=== PATIENT | female | born 1995 | race African-American/Black ===

== ENCOUNTER 2018-02-20 08:40 | Outpatient (CLI) | payer OTHER ==
[2018-02-20 09:25] LABS: APPEARANCE,URINE CLOUDY; BILIRUBIN,URINE NEGATIVE (NEGATIVE); COLOR,URINE YELLOW; GLUCOSE, URINE NEGATIVE (NEGATIVE); KETONES,URINE NEGATIVE (NEGATIVE); LEUKOCYTE ESTERASE,URINE LARGE (NEGATIVE); NITRITE,URINE NEGATIVE (NEGATIVE); PROTEIN,URINE NEGATIVE (NEGATIVE); UROBILINOGEN,URINE NEGATIVE mg/dL (<2.0)
[2018-02-20 09:44] LABS: URINE AMPHETAMINES SCREEN NEGATIVE; URINE BARBITURATES SCREEN NEGATIVE; URINE COCAINE SCREEN NEGATIVE; URINE MARIJUANA (THC) SCREEN NEGATIVE; URINE METHADONE SCREEN NEGATIVE; URINE PHENCYCLIDINE SCREEN NEGATIVE
[2018-02-20 09:52] LABS: URINE BENZODIAZEPINES SCREEN NEGATIVE
--- NOTE | 2018-02-20 17:22 | Non Stress Test Report ---
Non Stress Test Datetime Report Generated by CPN: 02/20/2018 17:22 DEMOGRAPHIC EGA NST: 39.4 INDICATION Indication for Study: Other Indication for Study (NST) Other: lc VITAL SIGNS Temperature - NST: 98.4 RESP - NST: 14 MONITORING Monitor Explained: Monitor Explained; Test Explained; Patient Verbalized Understanding Time on Monitor: 02/20/2018 09:00 Time off Monitor: 02/20/2018 10:00 NST Duration: 60 NST INTERVENTIONS NST Interventions: PO Hydration; Reposition Patient Physician Notified NST: K Nixon CNM BABY A: [id number] BABY A Movement : Present Contraction Frequency : occassional FHR Baseline : 130 Accelerations : 15X15 Decelerations : None Variability : Moderate 6-25bpm NST Review: Meets Criteria for Reactive NST NST Review and Verified By : Martha Solis RN NST Results: Reactive NST REPORT Report Trigger: Send Report
== END 2018-02-20 10:35 | disposition home or self-care (01) ==
LOC: LC 08:40
PROVIDERS: ATTEND Obstetrics & Gynecology Gynecology
PROC: 4A1HXCZ Monitoring of Products of Conception, Cardiac Rate, External Approach (ICD-10-PCS; principal; 2018-02-20)
DX: O47.1 False labor at or after 37 completed weeks of gestation (principal); Z3A.39 39 weeks gestation of pregnancy
CPT/HCPCS: 59025; 80307; 81005

== ENCOUNTER 2018-02-21 02:37 | Outpatient (CLI) | payer OTHER ==
[2018-02-21 03:35] LABS: APPEARANCE,URINE SLIGHTLY-CLOUDY; BILIRUBIN,URINE NEGATIVE (NEGATIVE); COLOR,URINE YELLOW; GLUCOSE, URINE NEGATIVE (NEGATIVE); KETONES,URINE NEGATIVE (NEGATIVE); LEUKOCYTE ESTERASE,URINE LARGE (NEGATIVE); NITRITE,URINE NEGATIVE (NEGATIVE); PROTEIN,URINE NEGATIVE (NEGATIVE); URINE SPECIFIC GRAVITY 1.009; UROBILINOGEN,URINE NEGATIVE mg/dL (<2.0)
[2018-02-21 03:50] LABS: URINE AMPHETAMINES SCREEN NEGATIVE; URINE BARBITURATES SCREEN NEGATIVE; URINE BENZODIAZEPINES SCREEN NEGATIVE; URINE COCAINE SCREEN NEGATIVE; URINE MARIJUANA (THC) SCREEN NEGATIVE; URINE METHADONE SCREEN NEGATIVE; URINE PHENCYCLIDINE SCREEN NEGATIVE
[2018-02-21] MEDS ORDERED: HYDROXYZINE PAMOATE 50 MG CAPSULE PO ONE (04:48)
[2018-02-21] MEDS ORDERED: HYDROXYZINE PAMOATE 50 MG CAPSULE ONE (04:51)
== END 2018-02-21 05:01 | disposition home or self-care (01) ==
LOC: LC 02:37
PROVIDERS: ATTEND Obstetrics & Gynecology Gynecology
PROC: 4A1HXCZ Monitoring of Products of Conception, Cardiac Rate, External Approach (ICD-10-PCS; principal; 2018-02-21)
DX: O47.1 False labor at or after 37 completed weeks of gestation (principal); Z3A.39 39 weeks gestation of pregnancy
CPT/HCPCS: 80307; 81005

== ENCOUNTER 2018-02-21 14:08 | Inpatient (IN) | payer OTHER ==
[2018-02-21] MEDS ORDERED: RINGERS SOLUTION,LACTATED 1,000 ML IV PRN ×2 (14:35→17:55)
[2018-02-21] MEDS ORDERED: RINGERS SOLUTION,LACTATED 1,000 ML IV ONE (14:35)
[2018-02-21] MEDS ORDERED: PENICILLIN G POTASSIUM 5,000,000 UNIT in DEXTROSE 5%-WATER 100 ML IV ONE (14:35)
[2018-02-21] MEDS ORDERED: PENICILLIN G-K 5 MILLION UNIT VIAL ONE ×2 (14:36→19:14)
[2018-02-21] MEDS ORDERED: MISOPROSTOL 0.2 MG TABLET ONE (14:37)
[2018-02-21] MEDS ORDERED: LIDOCAINE 1% INJ-PF (10 MG/ML) 30 ML SDV ONE (14:37)
[2018-02-21] MEDS ORDERED: OXYTOCIN/NORMAL SALINE 20 UNIT/1,000 ML RTUINJ ONE (14:37)
[2018-02-21 14:49] LABS: APPEARANCE,URINE CLOUDY; BILIRUBIN,URINE NEGATIVE (NEGATIVE); COLOR,URINE YELLOW; GLUCOSE, URINE NEGATIVE (NEGATIVE); KETONES,URINE NEGATIVE (NEGATIVE); LEUKOCYTE ESTERASE,URINE LARGE (NEGATIVE); NITRITE,URINE NEGATIVE (NEGATIVE); PROTEIN,URINE NEGATIVE (NEGATIVE); URINE SPECIFIC GRAVITY 1.008; UROBILINOGEN,URINE NEGATIVE mg/dL (<2.0)
[2018-02-21] MEDS ORDERED: BUPIVACAINE HCL 0.25 % INJ/PF (2.5 MG/1 ML) 30 ML VIAL ONE (15:04)
[2018-02-21] MEDS ORDERED: EPHEDRINE SULFATE INJ 50 MG/1 ML AMPULE ONE (15:04)
[2018-02-21] MEDS ORDERED: FENTANYL/BUPIVACAINE/NS/PF 300 MCG/150 ML RTUINJ EPI ONE (15:04)
[2018-02-21 15:07] LABS: URINE AMPHETAMINES SCREEN NEGATIVE; URINE BARBITURATES SCREEN NEGATIVE; URINE BENZODIAZEPINES SCREEN NEGATIVE; URINE COCAINE SCREEN NEGATIVE; URINE MARIJUANA (THC) SCREEN NEGATIVE; URINE METHADONE SCREEN NEGATIVE; URINE PHENCYCLIDINE SCREEN NEGATIVE
[2018-02-21 15:21] LABS: ABSOLUTE LYMPHOCYTES (AUTO) 1.1 10^3/uL (0.5-4.7); ABSOLUTE MONOCYTES (AUTO) 0.6 10^3/uL (0.1-1.4); ABSOLUTE NEUT (AUTO) 6.1 10^3/uL (1.7-8.2); BASOPHILS % (AUTO) 0.2 % (0-2); EOSINOPHILS % (AUTO) 0.1 % (0-6); HEMOGLOBIN 10.8 g/dL (12.0-15.5); LYMPHOCYTES % (AUTO) 14.4 % (13-45); MEAN CORPUSCULAR HEMOGLOBIN 21.5 pg (27.0-33.4); MEAN CORPUSCULAR HGB CONC 32.7 g/dL (32.0-36.0); MEAN CORPUSCULAR VOLUME 66 fl (80-97); PLATELET COUNT 174 10^3/uL (150-450); RED BLOOD COUNT 5.02 10^6/uL (3.72-5.28); RED CELL DISTRIBUTION WIDTH 17.8 % (11.5-14.0); SEGMENTED NEUTROPHILS % (AUTO) 78.3 % (42-78); TOTAL CELLS COUNTED % (AUTO) 100 %; WHITE BLOOD COUNT 7.8 10^3/uL (4.0-10.5)
--- NOTE | 2018-02-21 15:35 | Admission Physical ---
Datetime Report Generated by CPN: 02/21/2018 15:34 CURRENT ADMISSION Chief Complaint: Uterine Contractions Indication for Induction: Not Applicable Admit Impression : Term, Intrauterine Admit Plan: Admit to Unit; Initiate Labor Protocol ALLERGIES Medication Allergies: No Medication Allergies: No Known Allergies (02/21/2018) Latex: No Latex Allergies Food Allergies: none Environmental Allergies: none OBSTETRICAL HISTORY EDC: 02/23/2018 00:00 : 1 Para: 0 Term: 0 : 0 SAB: 0 IAB: 0 Ectopic: 0 Livin Cesareans: 0 VBACs: 0 Multiple Births: 0 Gestational Diabetes: Yes Rh Sensitization: No Incompetent Cervix: No MARY: No Infertility: No ART Treatment: No Uterine Anomaly: No IUGR: No Hx Previous C/S: No Macrosomia: No Hx Loss/Stillborn: No PIH: No Hx : No Placenta Previa/Abruption: No Depression/PP Depression: No PTL/PROM: No Post Hemorrhage: No Current Procedures: Ultrasound; NST Obstetrical History Comments: G1 - current GDM diet controlled SEE RECORDS Alcohol: No Marijuana : No Cocaine: No Other Illicit Drugs: No Cigarettes: Former Smoker. [id number] MEDICAL HISTORY Diabetes: Yes Diabetes Type: Gestational Diabetes Blood Transfusion: No Pulmonary Disease (Asthma, TB): No Breast Disease: No Hypertension: No Financial Quantitative Analyst Surgery: No Heart Disease: No Hosp/Surgery: No Autoimmune Disorder: No Anesthetic Complications: No Kidney Disease: No Abnormal Pap Smear: No Neuro/Epilepsy: No Psychiatric Disorders: No Other Medical Diseases: No Hepatitis/Liver Disease: No Significant Family History: No Varicosities/Phlebitis: No Trauma/Violence : No Thyroid Dysfunction: No Medical History Comments: pilonidal cyst, sickle cell trait INFECTIOUS HISTORY Gonorrhea: No Genital Herpes: No Chlamydia: No Tuberculosis: No Syphilis: No Hepatitis: No HIV/AIDS Exposure: No Rash or Viral Illness: No HPV: No PHYSICAL EXAM General: Normal HEENT: Normal Neurologic: Normal Thyroid: Deferred Heart: Normal Lungs: Normal Breast: Deferred Back: Normal Abdomen: Normal Genitourinary Exam: Normal Extremities: Normal DTRs: Deferred Pelvic Type: Adequate Vital Signs: Reviewed; Within Normal Limits VAGINAL EXAM Dilatation: 6 Effacement: 90 Station: bbow Contraction Comments: q5mins MEMBRANES Membranes: Bulging FETUS A EGA: 39.5 Monitoring: External US FHR- Baseline: 135 Variability: Moderate 6-25bpm Accelerations: 15X15 FHR Category: Category I Admit Comment: at 39+5w by 7w sono. complicated by GDM A1, pilonidal cyst surgery during . admitted for active labor, GBS pos-PCN orderedanticipate PLANS FOR LABOR AND DELIVERY Labor and Delivery: None Pain Management: Epidural Feeding Preference: Breast Benefit of Breast Feed Discussed: Yes Circumcision: Yes INFORMED CONSENT Assignment: Radha Banda MD Signature: with User ID: [email or web address] : with User ID: [email or web address]
[2018-02-21] MEDS ORDERED: OXYTOCIN/NORMAL SALINE 20 UNIT/1,000 ML RTUINJ IV PRN ×2 (17:55→21:40)
[2018-02-21] MEDS: PENICILLIN G POTASSIUM 2,500,000 UNIT in DEXTROSE 5%-WATER 50 ML IV SCH (19:31)
[2018-02-21] MEDS ORDERED: CEFAZOLIN 2 GM/D5W RTU 2 GM/50 ML RTUPB IV ONE (21:30)
[2018-02-21] MEDS ORDERED: DIPHENHYDRAMINE HCL 25 MG CAPSULE PO PRN (21:40)
[2018-02-21] MEDS ORDERED: PSEUDOEPHEDRINE HCL 30 MG TABLET PO PRN (21:40)
[2018-02-21] MEDS ORDERED: MEASLES,MUMPS&RUBELLA VACC/PF 0.5 ML VIAL SUBCUT PRN (21:40)
[2018-02-21] MEDS ORDERED: ZOLPIDEM TARTRATE 5 MG TABLET PO PRN (21:40)
[2018-02-21] MEDS ORDERED: PROMETHAZINE HCL 25 MG SUPP.RECT PR PRN (21:40)
[2018-02-21] MEDS ORDERED: PROMETHAZINE HCL INJ 25 MG/1 ML VIAL IV PRN (21:40)
[2018-02-21] MEDS ORDERED: ACETAMINOPHEN 325 MG TABLET PO PRN (21:40)
[2018-02-21] MEDS ORDERED: DIBUCAINE 1% OINTMENT 28 GM TP PRN (21:40)
[2018-02-21] MEDS ORDERED: BENZOCAINE/MENTHOL AEROSOL SPRAY 56 ML TOP PRN (21:40)
[2018-02-21] MEDS ORDERED: PROMETHAZINE HCL 25 MG TABLET PO PRN (21:40)
[2018-02-21] MEDS ORDERED: MAGNESIUM HYDROXIDE SUSP 30 ML UDCUP PO PRN (21:40)
[2018-02-21] MEDS ORDERED: ACETAMINOPHEN WITH CODEINE #3 TABLET PO PRN ×2 (21:40)
[2018-02-21] MEDS ORDERED: GLYCERIN/WITCH HAZEL LEAF 1 EACH MED..PAD TP PRN (21:40)
[2018-02-21] MEDS ORDERED: NA PHOS,M-B/NA PHOS,DI-BA (ADULT) 133 ML ENEMA PR PRN (21:40)
[2018-02-21] MEDS ORDERED: DIPH/PERTUSS(ACELL)/TETANUS VAC/PF 0.5 ML SYR (>=10YO) IM PRN (21:40)
[2018-02-21] MEDS ORDERED: MISOPROSTOL 0.2 MG TABLET PR PRN (21:40)
--- NOTE | 2018-02-21 21:53 | Warning Signs in Babies ---
VOD Warning Signs Datetime Report Generated by [facility]: 02/21/2018 21:53 VOD#608 -Warning Signs in Babies: Needs to be viewed. (02/20/2018 08:51:Tika Connor RN)
[2018-02-22] MEDS ORDERED: CEFAZOLIN 2 GM/D5W RTU 2 GM/50 ML RTUPB IV SCH
--- NOTE | 2018-02-22 00:12 | Warning Signs in Babies ---
VOD Warning Signs Datetime Report Generated by [facility]: 02/22/2018 00:11 VOD#608 -Warning Signs in Babies: Viewed with Parent(s)/Family (02/20/2018 08:51:Tika Connor RN)
--- NOTE | 2018-02-22 00:13 | Delivery Summary ---
Del Sum A-C Datetime Report Generated by CPN: 02/22/2018 00:12 DELIVERY PERSONNEL DELIVERY PERSONNEL: [id number] Delivery Doctor:: Radha Banda MD Labor and Delivery Nurse:: Antonieta Bonilla RNcontact assembler Nurse:: Tika Connor RN Nursery Nurse:: Ilsa Adhikari RN It Business Process Architect/ACTIVITY THERAPY TEACHER: Bria Parada CNA MATERNAL INFORMATION Delivery Anesthesia: Epidural Medications After Delivery: Pitocin Drip 20 Units/1000ml NSS; Other-Please Comment Meds After Delivery Comment: cytotec 1000mcg pr Maternal Complications: Other Other Maternal Complications: gdma1 Provider Comments: VMI delivered in DAVID presentation. No nuchal cord. Shoulders and body delivered without difficulty. Cord doubly clamped and cut and to maternal abd. Placenta delivered with manual extraction due to lower uterine segment contracted onto placenta and placenta was still attached at fundus. Antonio to gravity placed. and bladder drained. Manual extraction performed and placenta intact but sent to patholgy. Cytotec placed Per rectum. Ancef given IV. 2nd degree perineal laceration repaired in usual fashion. Mother and baby stable upon provider leaving the room. LABOR SUMMARY EDC: 02/23/2018 00:00 No. Babies in Womb: 1 Attempted: No Labor Anesthesia: Epidural LABOR INFORMATION Reason for Induction: Not Applicable Onset of Labor: 02/21/2018 14:33 Complete Dilatation: 02/21/2018 20:52 Cervical Ripening Agents: Cytotec @ 1000 Oxytocin: Augmentation Group B Beta Strep: Positive Antibiotics # of Doses: 2 Antibiotics Time of Last Dose: 1906 Name of Antibiotic Given: PCN Steroids Given: None Reason Steroids Not Administered: Not Applicable MEMBRANES Membranes Rupture Method: Spontaneous Rupture of Membranes: 02/21/2018 16:46 Length of Rupture (hr): 4.50 Amniotic Fluid Color: Moderate Meconium Amniotic Fluid Amount: Small Amniotic Fluid Odor: Normal STAGES OF LABOR Stage 1 hr: 6 Stage 1 min: 19 Stage 2 hr: 0 Stage 2 min: 24 Stage 3 hr: 0 Stage 3 min: 8 Total Time in Labor hr: 6 Total Time in Labor min: 51 VAGINAL DELIVERY Episiotomy: None Laceration #1: Perineal Laceration Extension #1: Second Degree Laceration Repair: Yes Laceration Repair Note: 2nd degree perineal laceration repaired in usual fashion Sponge Count Correct: Yes Sharps Count Correct: Yes CSECTION DELIVERY Primary Indication: N/A Secondary Indication: N/A CSection Incision: N/A BABY A INFORMATION Infant Delivery Date/Time: 02/21/2018 21:16 Method of Delivery: Vaginal Born in Route : No : N/A Forceps: N/A Vacuum Extraction: N/A Shoulder Dystocia : No PRESENTATION/POSITION BABY A Presentation: Cephalic Cephalic Presentation: Vertex Vertex Position: Left Occipital Anterior Breech Presentation: N/A PLACENTA INFORMATION BABY A Placenta Delivery Time : 02/21/2018 21:24 Placenta Method of Delivery: Manual Removal Placenta Status: Delivered SCORES BABY A Heart Rate 1 min: >100 bpm Resp Effort 1 min: Good Cry Reflex Irritability 1 min: Cough or Sneeze or Pulls Away Muscle Tone 1 min: Active Motion Color 1 min: Body Fedora, Extremities Blue Resuscitation Effort 1 min: Tactile Stimulation SCORE 1 MIN: 9 Heart Rate 5 min: >100 bpm Resp Effort 5 min: Good Cry Reflex Irritability 5 min: Cough or Sneeze or Pulls Away Muscle Tone 5 min: Active Motion Color 5 min: Body Fedora, Extremities Blue Resuscitation Effort 5 min: Tactile Stimulation SCORE 5 MIN: 9 INFORMATION BABY A Gestational Age at Delivery: 39.5 Gestational Status: Full Term- 39- 40.6 Weeks Outcome : Liveborn Infant Condition : Stable Sex: Male IDENTIFICATION BABY A Verification Date/Time: 02/21/2018 21:26 ID Band Number: [id number] Infant RN Verifying Infant: K. Hermilo, RN Additional Verifying Personnel: Aarti Theodore WEIGHT/LENGTH BABY A Birthweight (gm): 3560 Infant Weight (lb): 7 Infant Weight (oz): 14 Length (in): 20.50 Infant Length (cm): 52.07 CORD INFORMATION BABY A No. Cord Vessels: 3 Nuchal Cord : N/A Cord Blood Taken: Yes-For Eval (Mom's Blood Type - or O+) Infant Suction: Mouth ASSESSMENT BABY A Infant Complications: Meconium Physical Findings at Delivery: Caput Succedaneum Infant Respirations: Appears Normal Skin to Skin: Yes Industrial Equipment Mechanic/ALS Called : No Care By: rn derrick Transferred To: Remains with Mother BABY B INFORMATION : N/A SIGNATURES Signature: with User ID: [email or web address] : I was personally available for consultation and serving as supervising physician for the MLP.
--- NOTE | 2018-02-22 00:23 | Warning Signs in Babies ---
VOD Warning Signs Datetime Report Generated by [facility]: 02/22/2018 00:23 VOD#608 -Warning Signs in Babies: Viewed with Parent(s)/Family (02/22/2018 00:22:Tika Connor RN)
[2018-02-22] MEDS: PENICILLIN G POTASSIUM 2,500,000 UNIT in DEXTROSE 5%-WATER 50 ML IV SCH ×2 (01:27→05:32)
[2018-02-22] MEDS: FAMOTIDINE 20 MG TABLET PO SCH ×3 (01:28→23:10)
[2018-02-22] MEDS ORDERED: IBUPROFEN 800 MG TABLET ONE (01:30)
[2018-02-22] MEDS: IBUPROFEN 800 MG TABLET PO SCH ×4 (01:43→23:00)
[2018-02-22 06:55] LABS: HEMATOCRIT 30.2 % (36.0-47.0); HEMOGLOBIN 9.9 g/dL (12.0-15.5); MEAN CORPUSCULAR HEMOGLOBIN 21.6 pg (27.0-33.4); MEAN CORPUSCULAR HGB CONC 32.9 g/dL (32.0-36.0); MEAN CORPUSCULAR VOLUME 66 fl (80-97); PLATELET COUNT 156 10^3/uL (150-450); RED CELL DISTRIBUTION WIDTH 17.9 % (11.5-14.0); WHITE BLOOD COUNT 8.4 10^3/uL (4.0-10.5)
[2018-02-22] MEDS: PRENATAL VITAMIN W DHA CAPSULE PO SCH (09:17)
[2018-02-22] MEDS: SENNOSIDES/DOCUSATE 8.6-50 MG 1 EACH TABLET PO SCH (09:17)
[2018-02-22] MEDS: DOCUSATE SODIUM 100 MG CAPSULE PO SCH ×2 (09:17→17:09)
[2018-02-22] MEDS: FERROUS SULFATE 325 MG TABLET PO SCH ×2 (09:17→17:09)
--- NOTE | 2018-02-22 10:13 | PDOC PROGRESS REPORT ---
Subjective-OB Progress Note for:: 02/22/18 Subjective: reports bleeding slowing but was heavy overnight. nurse present and states she is about to take hyde catheter out, pain controlled with current meds, denies needs Physical Exam (OB) Vital Signs: Temp Pulse Resp BP Pulse Ox 98.4 F 86 18 125/82 100 02/22/18 06:29 02/22/18 06:29 02/22/18 06:29 02/22/18 06:29 02/22/18 06:29 Intake & Output 02/21/18 02/22/18 02/23/18 06:59 06:59 06:59 Intake Total 1100 Balance 1100 Weight 104.6 kg - Lochia Lochia Amount: Small 10-25 ml - small gush with fundal rub Lochia Color: Rubra/Red - Abdomen Description: Soft, Round Hernia Present: No Fundal Description: Firm, Midline Fundal Height: u/u - u/2 - Abdominal Inspection: Normal Distension: No distension Tenderness: Nontender - Extremities Lower extremities: Vini's sign - neg Calf: Normal, Nontender Objective-Diagnostic Laboratory: 02/22/18 06:43 02/21/18 02/21/18 02/21/18 14:20 14:59 15:05 WBC 7.8 RBC 5.02 Hgb 10.8 L Hct 33.0 L MCV 66 L MCH 21.5 L MCHC 32.7 RDW 17.8 H Plt Count 174 Seg Neutrophils % 78.3 H Lymphocytes % 14.4 Monocytes % 7.0 Eosinophils % 0.1 Basophils % 0.2 Absolute Neutrophils 6.1 Absolute Lymphocytes 1.1 Absolute Monocytes 0.6 Absolute Eosinophils 0.0 Absolute Basophils 0.0 Urine Color YELLOW Urine Appearance CLOUDY Urine pH 7.0 Ur Specific [place] 1.008 Urine Protein NEGATIVE Urine Glucose (UA) NEGATIVE Urine Ketones NEGATIVE Urine Blood NEGATIVE Urine Nitrite NEGATIVE Ur Leukocyte Esterase LARGE H Urine WBC (Auto) 32 Urine RBC (Auto) 3 Blood Type O POSITIVE Antibody Screen NEGATIVE 02/22/18 06:43 WBC 8.4 RBC 4.60 Hgb 9.9 L Hct 30.2 L MCV 66 L MCH 21.6 L MCHC 32.9 RDW 17.9 H Plt Count 156 Seg Neutrophils % Lymphocytes % Monocytes % Eosinophils % Basophils % Absolute Neutrophils Absolute Lymphocytes Absolute Monocytes Absolute Eosinophils Absolute Basophils Urine Color Urine Appearance Urine pH Ur Specific [place] Urine Protein Urine Glucose (UA) Urine Ketones Urine Blood Urine Nitrite Ur Leukocyte Esterase Urine WBC (Auto) Urine RBC (Auto) Blood Type Antibody Screen Assessment and Plan(PN) - Assessment and Plan (1) Carrier of group B Streptococcus Is this a current diagnosis for this admission?: Yes (2) Obstetrical laceration, second degree Is this a current diagnosis for this admission?: Yes (3) Vaginal delivery Is this a current diagnosis for this admission?: Yes - Time Spent with Patient Time with patient: Less than 15 minutes - Disposition Anticipated Discharge: Home Within: within 24 hours
[2018-02-23 06:02] LABS: ABSOLUTE MONOCYTES (AUTO) 0.7 10^3/uL (0.1-1.4); ABSOLUTE NEUT (AUTO) 4.2 10^3/uL (1.7-8.2); BASOPHILS % (AUTO) 0.5 % (0-2); EOSINOPHILS % (AUTO) 0.4 % (0-6); HEMATOCRIT 31.4 % (36.0-47.0); HEMOGLOBIN 10.3 g/dL (12.0-15.5); MEAN CORPUSCULAR HEMOGLOBIN 21.9 pg (27.0-33.4); MEAN CORPUSCULAR HGB CONC 32.8 g/dL (32.0-36.0); MEAN CORPUSCULAR VOLUME 67 fl (80-97); MONOCYTES % (AUTO) 10.1 % (3-13); PLATELET COUNT 170 10^3/uL (150-450); RED BLOOD COUNT 4.71 10^6/uL (3.72-5.28); RED CELL DISTRIBUTION WIDTH 17.8 % (11.5-14.0); TOTAL CELLS COUNTED % (AUTO) 100 %; WHITE BLOOD COUNT 7.1 10^3/uL (4.0-10.5)
[2018-02-23] MEDS: IBUPROFEN 800 MG TABLET PO SCH (06:12)
[2018-02-23 09:18] VITALS: BP 125/82
--- NOTE | 2018-02-23 09:18 | PDOC DISCHARGE SUMMARY ---
Final Diagnosis Discharge Date: 02/23/18 - Final Diagnosis (1) Carrier of group B Streptococcus Is this a current diagnosis for this admission?: Yes (2) Obstetrical laceration, second degree Is this a current diagnosis for this admission?: Yes (3) Vaginal delivery Is this a current diagnosis for this admission?: Yes Discharge Data - Discharge Medication Prescriptions: Ibuprofen [Motrin 800 mg Tablet] 800 mg PO Q8 #60 tablet Home Medications: Vit,Calc76/Iron/Folic [Prenatabs Rx Tablet] 1 each PO DAILY 02/20/18 Ibuprofen [Motrin 800 mg Tablet] 800 mg PO Q8 #60 tablet 02/23/18 Procedures: NST Intrapartum Procedure(s): Spontaneous Vaginal Delivery Complication(s): Laceration-Vaginal Laceration-Degree: 2nd - Diagnosis Test Laboratory: Temp Pulse Resp BP Pulse Ox 98.1 F 102 H 18 125/81 99 02/23/18 07:37 02/23/18 07:37 02/23/18 07:37 02/23/18 07:37 02/23/18 07:37 02/21/18 02/21/18 02/22/18 14:20 15:05 06:43 RBC 5.02 4.60 Hgb 10.8 L 9.9 L Hct 33.0 L 30.2 L Urine Opiates Screen NEGATIVE 02/23/18 05:42 RBC 4.71 Hgb 10.3 L Hct 31.4 L Urine Opiates Screen - Discharge information/Instructions Discharge Activity: Balance Activity w/Rest, Pelvic Rest Discharge Diet: Regular Disposition: HOME, SELF-CARE Follow up with: [facility] in: 4, Weeks
[2018-02-23] MEDS: PRENATAL VITAMIN W DHA CAPSULE PO SCH (10:20)
[2018-02-23] MEDS: SENNOSIDES/DOCUSATE 8.6-50 MG 1 EACH TABLET PO SCH (10:20)
[2018-02-23] MEDS: FAMOTIDINE 20 MG TABLET PO SCH (10:20)
[2018-02-23] MEDS: FERROUS SULFATE 325 MG TABLET PO SCH (10:20)
[2018-02-23] MEDS: DOCUSATE SODIUM 100 MG CAPSULE PO SCH (10:20)
== END 2018-02-23 14:23 | disposition home or self-care (01) | DRG 775 ==
LOC: LC 14:08 → LR 14:48 → 2S 02-22 06:14
PROVIDERS: ADMIT Student in an Organized Health Care Education/Training Program; ATTEND Student in an Organized Health Care Education/Training Program
PROC: 10E0XZZ Delivery of Products of Conception, External Approach (ICD-10-PCS; principal; 2018-02-21)
PROC: 0KQM0ZZ Repair Perineum Muscle, Open Approach (ICD-10-PCS; 2018-02-21)
PROC: 4A1HXCZ Monitoring of Products of Conception, Cardiac Rate, External Approach (ICD-10-PCS; 2018-02-21)
DX: O99.824 Streptococcus B carrier state complicating childbirth (principal); O70.1 Second degree perineal laceration during delivery; O24.420 Gestational diabetes mellitus in childbirth, diet controlled; O99.02 Anemia complicating childbirth; D57.3 Sickle-cell trait; O77.0 Labor and delivery complicated by meconium in amniotic fluid; Z87.891 Personal history of nicotine dependence; Z3A.39 39 weeks gestation of pregnancy; Z37.0 Single live birth
CPT/HCPCS: 36415; 80307; 81001; 85025; 85027; 86592; 86850; 86900; 86901; 88307; 94760; J0690; J2540; J2590; J3010; J3490

== ENCOUNTER 2018-10-22 18:19 | Emergency (ER) | payer OTHER ==
[2018-10-22 18:30] VITALS: BP 137/85
[2018-10-22] MEDS ORDERED: IBUPROFEN 800 MG TABLET PO ONE (19:18)
[2018-10-22] MEDS ORDERED: GUAIFENESIN 600 MG TABLET.SA PO ONE (19:18)
[2018-10-22] MEDS ORDERED: PSEUDOEPHEDRINE HCL 30 MG TABLET PO ONE (19:18)
[2018-10-22] MEDS ORDERED: LORATADINE 10 MG TABLET PO ONE (19:18)
--- NOTE | 2018-10-22 19:22 | ER Document Report ---
ED ENT - General Chief Complaint: Chest Congestion Stated Complaint: CHEST CONGESTION Time Seen by Provider: 10/22/18 19:10 Primary Care Provider: SHUKRI GHOSH MD [ACTIVE STAFF] - Follow up as needed Mode of Arrival: Ambulatory Information source: Patient Notes: 23-year-old female presents to ED for complaint of cough cold congestion stuffy nose times 3 days. She states there is no fever. States she smokes 1 black a mild every day. Patient is alert oriented respirations regular and unlabored speaking in full sentences walks with a even steady gait. TRAVEL OUTSIDE OF THE [place] IN LAST 30 DAYS: No - HPI Patient complains to provider of: Nose problem, Other - Cough cold congestion Onset: Other - 3 days Onset/Duration: Gradual Quality of pain: Achy Severity: Moderate Pain Level: 3 Context: Recent Illness Location of pain: Nose, Sinus, Throat Associated symptoms: Congestion, Cough, Runny nose, Sinus pain, Sinus drainage, Other - Body aches. denies: Fever Similar symptoms previously: Yes Recently seen / treated by doctor: No - Related Data Allergies/Adverse Reactions: No Known Allergies Allergy (Verified 10/22/18 18:20) Past Medical History - General Information source: Patient - Social History Smoking Status: Current Every Day Smoker Cigarette use (# per day): Yes - 1 black and mild cigar a day Chew tobacco use (# tins/day): No Smoking Education Provided: Yes - 4 minutes Frequency of alcohol use: Occasional Drug Abuse: None Occupation: Housewife Lives with: Family Family History: Reviewed & Not Pertinent Patient has suicidal ideation: No Patient has homicidal ideation: No - Past Medical History Cardiac Medical History: Reports: None Pulmonary Medical History: Reports: None EENT Medical History: Reports: None Neurological Medical History: Reports: None Endocrine Medical History: Reports: None Renal/ Medical History: Reports: None Malignancy Medical History: Reports: None GI Medical History: Reports: None Musculoskeletal Medical History: Reports None Skin Medical History: Reports None Psychiatric Medical History: Reports: None Traumatic Medical History: Reports: None Infectious Medical History: Reports: None Surgical Hx: Negative Past Surgical History: Reports: None - Immunizations Immunizations up to date: Yes Review of Systems - Review of Systems Constitutional: Recent illness. denies: Fever EENT: Nose congestion, Nose discharge, Sinus pressure, Sinus discharge, Other - Body aches Cardiovascular: No symptoms reported Respiratory: Cough Gastrointestinal: No symptoms reported Genitourinary: No symptoms reported Female Genitourinary: No symptoms reported Musculoskeletal: Muscle pain Skin: No symptoms reported Hematologic/Lymphatic: No symptoms reported Neurological/Psychological: No symptoms reported -: Yes All other systems reviewed and negative Physical Exam - Vital signs Vitals: Temp Pulse Resp BP Pulse Ox 98.9 F 92 18 137/85 H 98 10/22/18 18:28 10/22/18 18:28 10/22/18 18:28 10/22/18 18:28 10/22/18 18:28 Interpretation: Normal - General General appearance: Appears well, Alert - HEENT Head: Normocephalic, Atraumatic Eyes: Normal Pupils: PERRL Ears: Normal External canal: Normal Tympanic membrane: Normal Sinus: Normal Nasal: Purulent discharge, Swelling Mouth/Lips: Normal Mucous membranes: Normal Pharynx: Post nasal drainage. No: Erythema, Exudate, Tonsillar hypertrophy Neck: Normal - Respiratory Respiratory status: No respiratory distress Chest status: Nontender Breath sounds: Nonproductive cough. No: Decreased air movement, Productive cough, Rales, Rhonchi, Stridor, Wheezing Chest palpation: Normal - Cardiovascular Rhythm: Regular Heart sounds: Normal auscultation Murmur: No - Abdominal Inspection: Normal Distension: No distension Bowel sounds: Normal Tenderness: Nontender Organomegaly: No organomegaly - Back Back: Normal, Nontender - Extremities General upper extremity: Normal inspection, Nontender, Normal color, Normal ROM, Normal temperature General lower extremity: Normal inspection, Nontender, Normal color, Normal ROM, Normal temperature, Normal weight bearing. No: Vini's sign - Neurological Neuro grossly intact: Yes Cognition: Normal Orientation: AAOx4 [place] Coma Scale Eye Opening: Spontaneous [place] Coma Scale Verbal: Oriented [place] Coma Scale Motor: Obeys Commands Cem Coma Scale Total: 15 Speech: Normal Motor strength normal: LUE, RUE, LLE, RLE Sensory: Normal - Psychological Associated symptoms: Normal affect, Normal mood - Skin Skin Temperature: Warm Skin Moisture: Dry Skin Color: Normal Course - Re-evaluation Re-evalutation: 10/22/18 20:43 After performing a Medical Screening Examination, I estimate there is LOW risk for ACUTE CORONARY SYNDROME, RESPIRATORY FAILURE, SEPSIS OR MENINGITIS, thus I consider the discharge disposition reasonable. I have reevaluated this patient multiple times and no significant life threatening changes are noted. The patient and I have discussed the diagnosis and risks, and we agree with discharging home with close follow-up. We also discussed returning to the Emergency Department immediately if new or worsening symptoms occur. We have discussed the symptoms which are most concerning (e.g., changing or worsening pain, trouble swallowing or breathing, neck stiffness, fever) that necessitate immediate return. - Vital Signs Vital signs: Temp Pulse Resp BP Pulse Ox 98.9 F 92 18 137/85 H 98 10/22/18 18:28 10/22/18 18:28 10/22/18 18:28 10/22/18 18:28 10/22/18 18:28 Discharge - Discharge Clinical Impression: URI (upper respiratory infection) Qualifiers: URI type: unspecified viral URI Qualified Code(s): J06.9 - Acute upper respiratory infection, unspecified Condition: Stable Disposition: HOME, SELF-CARE Instructions: Family Physicians / Practices Additional Instructions: UPPER RESPIRATORY ILLNESS: You have a viral infection of the respiratory passages -- a "cold." This common infection causes nasal congestion, drainage, and often sore throat and cough. It is highly contagious. The disease usually lasts about 10 to 14 days. There is no "cure" for the viral infection -- it must run its course. If there is a complication, such as bacterial infection in the nose, sinuses, middle ear, or bronchial tubes, antibiotics may be required. The antibiotics won't affect the virus. Drink plenty of fluids. A humidifier may help. An expectorant medication or decongestant may make you more comfortable. Use acetaminophen or ibuprofen for fever or aches. See the doctor if fever persists over two days, if there is any significant worsening of your symptoms, or if you simply fail to improve as expected. COUGH-SUPPRESSANT & EXPECTORANT MEDICATION: You are to use a cough medication as needed for relief of symptoms. This medicine is a combination of an expectorant (to make the mucous thinner and more easily "coughed up") and a cough suppressant (to reduce the frequency of coughing). The cough-suppressant medicine is related to narcotics. You may experience mild nausea and sleepiness. Some patients who are very sensitive to narcotics may have stomach pain from this medicine. Taking the medicine with food reduces these side effects. Do not drive or work with machinery until you know how this medicine affects you. The expectorant should have no side effects. Iodine-containing expectorants (such as organidin) should not be taken by persons with active thyroid disease unless approved by your doctor. Call the doctor if you develop shortness of breath, hives, rash, itching, lightheadedness, or severe nausea and vomiting. USE OF ACETAMINOPHEN (Tylenol): Acetaminophen may be taken for pain relief or fever control. It's much safer than aspirin, offering a wider range of "safe" dosages. It is safe during . Some brand names are Tylenol, Panadol, Datril, Anacin 3, Tempra, and Liquiprin. Acetaminophen can be repeated every four hours. The following are maximum recommended dosages: >89 pounds or adults 650 mg to 900 mg Acetaminophen can be repeated every four hours. Maximum dose not to exceed 4000 mg a day. SMOKING: If you smoke, you should stop smoking. The tar and chemicals in cigarette smoke are harmful. Smoking has been shown to cause: emphysema chronic bronchitis lung cancer mouth and throat cancer stomach and pancreas cancer premature aging defects In addition, smoking increases ear and lung infections in children of smokers. You were treated with Claritin 10 mg, Sudafed 30 mg, Mucinex 600 mg, and ibuprofen 800 mg in the emergency room for your cough cold congestion. These are all medications that she can buy [id number]. For your ibuprofen you can take for the 200 mg [id number] ibuprofen. You can also use Flonase which is a nasal spray steroid which will help with decrease your symptoms. He can also use salt and soda solution gargles which will decrease the sore throat. As instructed please use nasal spray and blow your nose good before going to bed to decrease the amount of drainage that goes down the back of your nose. Also use a couple pillows at night which will decrease the drainage in the back your throat. Salt and soda solution 1 quart of water 1 tablespoon of salt 1 teaspoon of baking soda Mixed 3 ingredients together and boil for 1 minute Placed in a covered quart jar Use 1/2 ounce of cold solution to gargle 3 times a day FOLLOW-UP CARE: If you have been referred to a physician for follow-up care, call the physicians office for an appointment as you were instructed or within the next two days. If you experience worsening or a significant change in your symptoms, notify the physician immediately or return to the Emergency Department at any time for re-evaluation. Forms: Elevated Blood Pressure, Smoking Cessation Education Referrals: SHUKRI GHOSH MD [ACTIVE STAFF] - Follow up as needed
== END 2018-10-22 19:30 | disposition home or self-care (01) ==
LOC: ER 18:19
DX: J06.9 Acute upper respiratory infection, unspecified (principal); B97.89 Other viral agents as the cause of diseases classified elsewhere; R09.89 Other specified symptoms and signs involving the circulatory and respiratory systems; R05 Cough; R09.81 Nasal congestion; R09.82 Postnasal drip; R52 Pain, unspecified; F17.290 Nicotine dependence, other tobacco product, uncomplicated; J34.89 Other specified disorders of nose and nasal sinuses; Z71.6 Tobacco abuse counseling
CPT/HCPCS: 99283; 99406